=== PATIENT | male | born 2000 | race Two or more races ===

== ENCOUNTER 2024-02-08 16:17 | Emergency (ER) | payer MEDICAID ==
[~2024-02-08] VITALS: Ht 175.3 cm; Wt 77.1 kg
[2024-02-08 16:39] VITALS: BP 154/89; TEMP 97.8
[2024-02-08 17:45] VITALS: O2SAT 100
== END 2024-02-08 17:54 | disposition home or self-care (01) ==
LOC: ER 16:37
DX: R07.89 Other chest pain (principal); J45.909 Unspecified asthma, uncomplicated